=== PATIENT | female | born 1950 | race Caucasian/White ===

== ENCOUNTER 2016-12-22 09:06 | Observation (INO) | payer MEDICARE ==
[~2016-12-22] VITALS: Ht 165.1 cm; Wt 105.1 kg
[~2016-12-22 09:06] MED LIST: ATOR1TAB18 PO; LISI40TA PO; PRIL10CA PO; THYR1TAB21 PO; [UNRECOGNIZED DRUG - SUPPLY]
[2016-12-22 09:09] VITALS: BP 175/89; PULSE 78; RESP 16; TEMP 98.6; O2SAT 98
[2016-12-22] MEDS ORDERED: SODIUM CHLOR 0.9% 1000 ML INJ 1,000 ML IV SCH (09:23)
--- NOTE | 2016-12-22 09:25 | PD ---
HPI Chief Complaint: Abdominal Pain Time Seen by Provider: 09:17 Travel History International Travel<30 days: No Contact w/Intl Traveler<30days: No Traveled to known affect area: No History of Present Illness HPI This is a 66-year-old female who presents to the emergency department with epigastric and right upper quadrant abdominal pain that started last evening, constant, severe, described as a throbbing and bandlike pain radiating to the back. She did dry heave this morning. She had a normal bowel movement this morning. She has felt chills throughout the night. She has never had abdominal surgery before. She's never had pain like this before. She does drink 2-3 alcoholic beverages per day. PFSH Past Medical History Hx Anticoagulant Therapy: Yes (BABY ASA DAILY) Social History Alcohol Use: Yes (2-3 drinks a day) Tobacco Use: No Allergies-Medications (Allergen,Severity, Reaction): Coded Allergies: Penicillin (Unverified Allergy, Intermediate, Anaphylaxis, 12/22/16) Reported Meds & Prescriptions Reported Meds & Active Scripts Active Nature-Throid (Thyroid) 65 Mg Tab 65 Mg PO DAILY Lisinopril 40 Mg Tab 40 Mg PO DAILY Atorvastatin (Atorvastatin Calcium) 80 Mg Tab 80 Mg PO HS [CPAP Supplies] Reported Aspirin 81 Mg Tabdr 81 Mg PO DAILY Marly Allergy (Fexofenadine HCl) 180 Mg Tab 180 Mg PO DAILY Omeprazole 20 Mg Tab 20 Mg PO DAILY Review of Systems Except as stated in HPI: all other systems reviewed are Neg Physical Exam Narrative GENERAL: Uncomfortable appearing SKIN: Warm and dry. HEAD: Atraumatic. Normocephalic. EYES: Pupils equal and round. No injection or drainage. ENT: Moist mucous membranes NECK: Trachea midline. CARDIOVASCULAR: Regular rate and rhythm. No murmur appreciated. RESPIRATORY: Clear to auscultation. Breath sounds equal bilaterally. GASTROINTESTINAL: Abdomen soft, tender to palpation with guarding in the right upper quadrant and epigastrium MUSCULOSKELETAL: No obvious deformities. NEUROLOGICAL: Awake and alert. No obvious cranial nerve deficits. Moving all extremities. PSYCHIATRIC: Appropriate mood and affect; insight and judgment normal. Data Data Last Documented VS Vital Signs Date Time Temp Pulse Resp B/P Pulse Ox O2 Delivery O2 Flow Rate FiO2 12/22/16 10:34 18 12/22/16 10:05 74 200/84 100 Room Air 12/22/16 09:09 98.6 Orders Complete Blood Count With Diff (12/22/16 09:23) Comprehensive Metabolic Panel (12/22/16 09:23) Lipase (12/22/16 09:23) Prothrombin Time / Inr (Pt) (12/22/16 09:23) Act Partial Throm Time (Ptt) (12/22/16 09:23) Urinalysis - C+S If Indicated (12/22/16 09:23) Us Abdomen Gallbladder (12/22/16 ) Iv Access Insert/Monitor (12/22/16 09:23) Ecg Monitoring (12/22/16 09:23) Oximetry (12/22/16 09:23) Ondansetron Inj (Zofran Inj) (12/22/16 09:30) Sodium Chlor 0.9% 1000 Ml Inj (Ns 1000 M (12/22/16 09:23) Sodium Chloride 0.9% Flush (Ns Flush) (12/22/16 09:30) Morphine Inj (Morphine Inj) (12/22/16 09:30) Hydromorphone Pf Inj (Dilaudid Pf Inj) (12/22/16 10:15) Labs Laboratory Tests Test 12/22/16 09:35 White Blood Count 9.4 TH/MM3 Red Blood Count 4.69 MIL/MM3 Hemoglobin 14.7 GM/DL Hematocrit 45.7 % Mean Corpuscular Volume 97.6 FL Mean Corpuscular Hemoglobin 31.4 PG Mean Corpuscular Hemoglobin 32.2 % Concent Red Cell Distribution Width 15.2 % Platelet Count 256 TH/MM3 Mean Platelet Volume 8.5 FL Neutrophils (%) (Auto) 77.6 % Lymphocytes (%) (Auto) 14.4 % Monocytes (%) (Auto) 4.7 % Eosinophils (%) (Auto) 0.7 % Basophils (%) (Auto) 2.6 % Neutrophils # (Auto) 7.3 TH/MM3 Lymphocytes # (Auto) 1.4 TH/MM3 Monocytes # (Auto) 0.4 TH/MM3 Eosinophils # (Auto) 0.1 TH/MM3 Basophils # (Auto) 0.2 TH/MM3 CBC Comment DIFF FINAL Differential Comment Prothrombin Time 10.5 SEC Prothromb Time International 1.0 RATIO Ratio Activated Partial 22.6 SEC Thromboplast Time Sodium Level 139 MEQ/L Potassium Level 3.5 MEQ/L Chloride Level 99 MEQ/L Carbon Dioxide Level 27.8 MEQ/L Anion Gap 12 MEQ/L Blood Urea Nitrogen 7 MG/DL Creatinine 0.87 MG/DL Estimat Glomerular Filtration 65 ML/MIN Rate Random Glucose 127 MG/DL Calcium Level 9.3 MG/DL Total Bilirubin 0.7 MG/DL Aspartate Amino Transf 92 U/L (AST/SGOT) Alanine Aminotransferase 75 U/L (ALT/SGPT) Alkaline Phosphatase 89 U/L Total Protein 8.1 GM/DL Albumin 3.5 GM/DL Lipase 6836 U/L [facility] Medical Decision Making Medical Screen Exam Complete: Yes Emergency Medical Condition: Yes Interpretation(s) Afebrile, no tachycardia, hypertensive No leukocytosis Mild transaminitis Lipase is 6836 Differential Diagnosis Acute pancreatitis, cholelithiasis, cholecystitis Narrative Course This is a 66-year-old female who presents to the emergency department with abdominal pain and nausea. She was placed on a monitor and an IV was established. She was given multiple doses of IV pain medication, nausea medicine and IV fluids. Her lipase was found to be 6836 consistent with acute pancreatitis. A right upper quadrant ultrasound will be ordered and the patient will be admitted. I suspect this is related to her alcohol use. Diagnosis Primary Impression: Acute pancreatitis Qualified Code: K85.90 - Acute pancreatitis without infection or necrosis, unspecified pancreatitis type Admitting Information Admitting Physician Requests: Admit Anika Downey MD Dec 22, 2016 09:25
[2016-12-22] MEDS ORDERED: ONDANSETRON HCL 4 MG/2 ML VIAL IVP ONE (09:30)
[2016-12-22] MEDS ORDERED: SODIUM CHLORIDE 0.9% FLUSH 5 ML FLUSH IVF PRN (09:30)
[2016-12-22] MEDS ORDERED: MORPHINE SULFATE 8 MG/ML INJ IV PUSH ONE (09:30)
[2016-12-22] MEDS ORDERED: OMEP20TA PO (09:52)
[2016-12-22] MEDS ORDERED: FEXO15TA PO (09:52)
[2016-12-22] MEDS ORDERED: ASPI1TAB69 PO (09:53)
[2016-12-22 09:57] LABS: AUTOMATED NEUTROPHIL # 7.3 TH/MM3 (1.8-7.7); BASOPHIL # 0.2 TH/MM3 (0-0.2); BASOPHIL % 2.6 % (0.0-2.0); EOSINOPHIL # 0.1 TH/MM3 (0-0.4); EOSINOPHIL % 0.7 % (0.0-4.0); HEMATOCRIT 45.7 % (35.0-46.0); LYMPH % 14.4 % (9.0-44.0); LYMPHOCYTE # 1.4 TH/MM3 (1.0-4.8); MEAN CELL VOLUME 97.6 FL (80.0-100.0); MEAN CORPUSCULAR HEMOGLOBIN 31.4 PG (27.0-34.0); MEAN CORPUSCULAR HGB CONC 32.2 % (32.0-36.0); MONO % 4.7 % (0.0-8.0); NEUT % 77.6 % (16.0-70.0); PLATELET COUNT 256 TH/MM3 (150-450); RED BLOOD COUNT 4.69 MIL/MM3 (4.00-5.30); RED CELL DISTRIBUTION WIDTH 15.2 % (11.6-17.2); WHITE BLOOD COUNT 9.4 TH/MM3 (4.0-11.0)
[2016-12-22 09:59] LABS: HEMO FLAGS DIFF FINAL
[2016-12-22 10:00] LABS: CHLORIDE 99 MEQ/L (98-107); POTASSIUM 3.5 MEQ/L (3.5-5.1); SODIUM (NA) 139 MEQ/L (136-145)
[2016-12-22 10:04] LABS: APTT (PATIENT) 22.6 SEC (24.3-30.1); PROTHROMBIN TIME - PATIENT 10.5 SEC (9.8-11.6)
[2016-12-22 10:05] VITALS: BP 200/84; PULSE 74; RESP 18; RESP 20; O2SAT 100
[2016-12-22 10:05] LABS: ANION GAP 12 MEQ/L (5-15); BICARBONATE 27.8 MEQ/L (21.0-32.0)
[2016-12-22 10:06] LABS: BLOOD UREA NITROGEN 7 MG/DL (7-18)
[2016-12-22 10:08] LABS: ALT (GPT) 75 U/L (10-53); AST (GOT) 92 U/L (15-37); GLOMERULAR FILTRATION RATE 65 ML/MIN (>89)
[2016-12-22 10:10] LABS: TOTAL BILIRUBIN ADULT 0.7 MG/DL (0.2-1.0)
[2016-12-22 10:11] LABS: ALKALINE PHOSPHATASE 89 U/L (45-117)
[2016-12-22] MEDS ORDERED: HYDROmorphone HCL PF 1 MG/ML VIAL IV PUSH ONE (10:15)
[2016-12-22 11:00] VITALS: BP 220/110; PULSE 84; RESP 18; O2SAT 100
[2016-12-22] MEDS ORDERED: LISINOPRIL 20 MG TAB PO ONE (11:15)
--- NOTE | 2016-12-22 11:22 | RADHPO ---
EXAM DATE/TIME: 12/22/2016 10:21 [facility] COMPARISON: No previous studies available for comparison. INDICATIONS : Right upper quadrant pain. MEDICAL HISTORY : Gastroesophageal reflux disease. Hypercholesterolemia. Hypertension. Right upper quadrant pain. SURGICAL HISTORY : Mastectomy, left. ENCOUNTER: Initial ACUITY: 1 day PAIN SCORE: 9/10 LOCATION: Right upper quadrant MEASUREMENTS: LIVER: 23.0 cm length COMMON DUCT: 4 mm RIGHT KIDNEY: 11.8 x 6.1 x 5.9 cm FINDINGS: LIVER: Increased echotexture without focal lesion or ductal dilatation. COMMON DUCT: No intraluminal mass or stone visualized. GALLBLADDER: Contains no stones, demonstrates no wall thickening or pericholecystic fluid. PANCREAS: The visualized portions are within normal limits. Questionable adjacent free fluid RIGHT KIDNEY: No evidence of hydronephrosis, stone, or mass. CONCLUSION: Fatty liver otherwise unremarkable right upper quadrant ultrasound. Ángel Salcido MD on December 22, 2016 at 11:19 Board Certified Radiologist. This report was verified electronically.
[2016-12-22] MEDS ORDERED: SODIUM CHLORIDE 0.9% FLUSH 5 ML FLUSH FLUSH PRN (12:15)
[2016-12-22] MEDS: SODIUM CHLOR 0.9% 1000 ML INJ 1,000 ML IV SCH ×2 (12:27→22:18)
--- NOTE | 2016-12-22 14:09 | HHI.HP ---
cc: Catarino Rai MD [facility] Service [facility] Primary Care Physician Catarino R3 MD Fredi Admission Diagnosis acute pancreatitis Diagnoses: Chief Complaint: Abdominal pain Travel History International Travel<30 Days: No Contact w/Intl Traveler <30 Da: No Traveled to Known Affected Are: No History of Present Illness Patient is a 66-year-old female who drinks quite a bit alcohol wine and liquor daily. She came to the emergency room with increased abdominal pain in the right upper quadrant radiating into the back and associated nausea and vomiting. She had no trouble with her bowel movements and has not been constipated. There is no history of abdominal surgeries. Patient did come to the emergency room was found to have elevated lipase. Patient has never had any episodes of pancreatitis. She did have gallbladder ultrasound which was unremarkable. She was given IV narcotics which improved the discomfort in her lipase was found to be 6836. Patient is admitted to the hospital for further evaluation of acute pancreatitis. Review of Systems Constitutional: DENIES: Diaphoretic episodes, Fatigue, Fever, Weight gain, Weight loss, Chills, Dizziness, Change in appetite, Night Sweats Endocrine: DENIES: Abnorml menstrual pattern, Heat/cold intolerance, Polydipsia , Polyuria, Polyphagia Eyes: DENIES: Blurred vision, Diplopia, Eye inflammation, Eye pain, Vision loss , Photosensitivity, Double Vision Ears, nose, mouth, throat: DENIES: Tinnitus, Hearing loss, Vertigo, Nasal discharge, Oral lesions, Throat pain, Hoarseness, Ear Pain, Running Nose, Epistaxis, Sinus Pain, Toothache, Odynophagia Respiratory: DENIES: Apneas, Cough, Snoring, Wheezing, Hemoptysis, Sputum production, Shortness of breath Cardiovascular: DENIES: Chest pain, Palpitations, Syncope, Dyspnea on Exertion , PND, Lower Extremity Edema, Orthopnea, Claudication Gastrointestinal: COMPLAINS OF: Abdominal pain, Nausea, Vomiting, DENIES: Black stools, Bloody stools, Constipation, Diarrhea, Difficulty Swallowing, Anorexia Genitourinary: DENIES: Abnormal vaginal bleeding, Dysmenorrhea, Dyspareunia, Sexual dysfunction, Urinary frequency, Urinary incontinence, Urgency, Hematuria , Dysuria, Nocturia, Vaginal discharge Musculoskeletal: DENIES: Joint pain, Muscle aches, Stiffness, Joint Swelling, Back pain, Neck pain Integumentary: DENIES: Abnormal pigmentation, Pruritus, Rash, Nail changes, Breast masses, Breast skin changes, Nipple discharge Hematologic/lymphatic: DENIES: Bruising, Lymphadenopathy Immunologic/allergic: DENIES: Eczema, Urticaria Neurologic: DENIES: Abnormal gait, Headache, Localized weakness, Paresthesias, Seizures, Speech Problems, Tremor, Poor Balance Psychiatric: DENIES: Anxiety, Confusion, Mood changes, Depression, Hallucinations, Agitation, Suicidal Ideation, Homicidal Ideation, Delusions Past Family Social History Past Medical History Chronic urticaria, breast cancer, hypertension, thyroid disease, hyperlipidemia Past Surgical History Left breast resection right breast reduction Reported Medications Reviewed in the medical record, nothing new Allergies: Coded Allergies: Penicillin (Unverified Allergy, Intermediate, Anaphylaxis, 12/22/16) Active Ordered Medications Reviewed in the medical record Family History No family history of pancreatitis, father and mother in her 80s from natural causes. Patient Social History Lives alone, drinks wine and liquor daily No tobacco Physical Exam Vital Signs Vital Signs Date Time Temp Pulse Resp B/P Pulse Ox O2 Delivery O2 Flow Rate FiO2 12/22/16 11:00 84 18 220/110 100 Room Air 12/22/16 10:34 18 12/22/16 10:07 20 12/22/16 10:05 74 18 200/84 100 Room Air 12/22/16 10:05 20 100 Room Air 12/22/16 09:09 98.6 78 16 175/89 98 Physical Exam GENERAL: This is a well-nourished, well-developed patient, in no apparent distress. SKIN: No rashes, ecchymoses or lesions. Cool and dry. HEAD: Atraumatic. Normocephalic. No temporal or scalp tenderness. EYES: Pupils equal round and reactive. Extraocular motions intact. No scleral icterus. No injection or drainage. ENT: Nose without bleeding, purulent drainage or septal hematoma. Throat without erythema, tonsillar hypertrophy or exudate. Uvula midline. Airway patent. NECK: Trachea midline. No JVD or lymphadenopathy. Supple, nontender, no meningeal signs. CARDIOVASCULAR: Regular rate and rhythm without murmurs, gallops, or rubs. RESPIRATORY: Clear to auscultation. Breath sounds equal bilaterally. No wheezes , rales, or rhonchi. GASTROINTESTINAL: Active and tender abdomen, mildly distended MUSCULOSKELETAL: Extremities without clubbing, cyanosis, or edema. No joint tenderness, effusion, or edema noted. No calf tenderness. Negative Homans sign bilaterally. NEUROLOGICAL: Awake and alert. Cranial nerves II through XII intact. Motor and sensory grossly within normal limits. Five out of 5 muscle strength in all muscle groups. Normal speech. Laboratory Laboratory Tests Test 12/22/16 09:35 White Blood Count 9.4 Red Blood Count 4.69 Hemoglobin 14.7 Hematocrit 45.7 Mean Corpuscular Volume 97.6 Mean Corpuscular Hemoglobin 31.4 Mean Corpuscular Hemoglobin 32.2 Concent Red Cell Distribution Width 15.2 Platelet Count 256 Mean Platelet Volume 8.5 Neutrophils (%) (Auto) 77.6 Lymphocytes (%) (Auto) 14.4 Monocytes (%) (Auto) 4.7 Eosinophils (%) (Auto) 0.7 Basophils (%) (Auto) 2.6 Neutrophils # (Auto) 7.3 Lymphocytes # (Auto) 1.4 Monocytes # (Auto) 0.4 Eosinophils # (Auto) 0.1 Basophils # (Auto) 0.2 CBC Comment DIFF FINAL Differential Comment Prothrombin Time 10.5 Prothromb Time International 1.0 Ratio Activated Partial 22.6 Thromboplast Time Sodium Level 139 Potassium Level 3.5 Chloride Level 99 Carbon Dioxide Level 27.8 Anion Gap 12 Blood Urea Nitrogen 7 Creatinine 0.87 Estimat Glomerular Filtration 65 Rate Random Glucose 127 Calcium Level 9.3 Total Bilirubin 0.7 Aspartate Amino Transf 92 (AST/SGOT) Alanine Aminotransferase 75 (ALT/SGPT) Alkaline Phosphatase 89 Total Protein 8.1 Albumin 3.5 Lipase 6836 Result Diagram: 12/22/1693412/22/1635 Assessment and Plan Problem List: (1) Acute pancreatitis ICD Code: K85.90 Status: Acute Plan: Continue with IV hydration, CT abdomen pelvis pending Follow-up LFTs which are elevated (likely due to alcohol) Continue with IV narcotics for pain Clear liquids in a.m. if tolerated Code Status full code Discussed Condition With Patient, ER M.D. Problem Qualifiers (1) Acute pancreatitis: Qualified Code: K85.90 - Acute pancreatitis without infection or necrosis, unspecified pancreatitis type Li Penaloza MD Dec 22, 2016 14:09
[2016-12-22] MEDS: HYDROmorphone HCL PF 2 MG/ML VIAL IVS PRN ×2 (15:35→21:15)
[2016-12-22] MEDS ORDERED: DIATRIZOATE MEGLUM/DIATRIZOATE SOD 9 ML CUP PO ONE (15:45)
[2016-12-22 16:00] VITALS: BP 213/113; PULSE 84; RESP 18; TEMP 97.8; O2SAT 98
[2016-12-22] MEDS ORDERED: hydrALAZINE HCL 20 MG/ML VIAL IV PUSH PRN (17:30)
[2016-12-22] MEDS ORDERED: ENALAPRILAT 1.25 MG/ML VIAL IV PUSH PRN (17:30)
[2016-12-22] MEDS ORDERED: chlordiazePOXIDE 25 MG CAP PO PRN (17:30)
[2016-12-22] MEDS ORDERED: cloNIDine HCL 0.1 MG TAB PO PRN (17:30)
[2016-12-22] MEDS ORDERED: LORazepam 2 MG/ML VIAL IV PUSH PRN (17:30)
[2016-12-22] MEDS: THIAMINE HCL 100 MG TAB PO SCH (17:56)
[2016-12-22] MEDS: FOLIC ACID 1 MG TAB PO SCH (17:56)
[2016-12-22] MEDS ORDERED: ONDANSETRON HCL 4 MG/2 ML VIAL IV PUSH PRN (18:00)
[2016-12-22 18:01] LABS: BLOOD, URINE NEG (NEG); GLUCOSE,URINE NEG (NEG); KETONE, URINE NEG (NEG); NITRITE,URINE NEG (NEG); PH, URINE 5.5 (5.0-8.5)
[2016-12-22 18:05] LABS: METHOD OF COLLECTION VOIDED
[2016-12-22 18:06] LABS: COMMENT (UR) CULT NOT INDICATED; CULTURE IF INDICATED CULT NOT INDICATED; URINE COLOR YELLOW (YELLW/STRAW); WBC, URINE 0-2 /hpf (0-5)
[2016-12-22 18:07] LABS: HYALINE CAST, URINE 0-2 /lpf (RARE)
[2016-12-22] MEDS ORDERED: IOHEXOL 350 MG/ML 10 ML VIAL (for RAD DIAG) IV ONE (19:35)
[2016-12-22 20:00] VITALS: BP 177/89; PULSE 88; RESP 20; TEMP 99; O2SAT 95
--- NOTE | 2016-12-22 20:57 | RADHPO ---
EXAM DATE/TIME: 12/22/2016 19:35 [facility] COMPARISON: No previous studies available for comparison. INDICATIONS : Pancreatitis. Upper abdominal pain. IV CONTRAST: 100 cc Omnipaque 350 (iohexol) IV ORAL CONTRAST: Partial prescribed oral contrast ingested. RADIATION DOSE: 22.06 CTDIvol (mGy) MEDICAL HISTORY : Hypertension. Carcinoma, breast. Gastroesophageal reflux disease. SURGICAL HISTORY : Mastectomy, left. ENCOUNTER: Initial ACUITY: 2 days PAIN SCALE: 5/10 LOCATION: Bilateral upper quadrant TECHNIQUE: Volumetric scanning of the abdomen and pelvis was performed. Using automated exposure control and ad justment of the mA and/or kV according to patient size, radiation dose was kept as low as reasonably achievable to obtain optimal diagnostic quality images. FINDINGS: LOWER LUNGS: Mild air space disease is identified in the left base. LIVER: Liver is diffusely hypodense. There are no discrete lesions or evidence of ductal dilatation. Gallbla dder is in place. Portal vein is patent. SPLEEN: Normal size without lesion. PANCREAS: Extensive pancreatic and peripancreatic inflammation with stranding fluid into the anterior pararenal space and mesentery is noted. There are no mature extrapancreatic fluid collections. KIDNEYS: Normal in size and shape. There is no mass, stone or hydronephrosis. ADRENAL GLANDS: Within normal limits. VASCULAR: There is no aortic aneurysm. BOWEL/MESENTERY: The stomach, small bowel, and colon demonstrate no acute abnormality. There is no free intraperitone al air or fluid. ABDOMINAL WALL: Within normal limits. RETROPERITONEUM: There is no lymphadenopathy. BLADDER: No wall thickening or mass. REPRODUCTIVE: Within normal limits. Free fluid is identified in the pelvis. INGUINAL: There is no lymphadenopathy or hernia. MUSCULOSKELETAL: No acute findings. CONCLUSION: Acute pancreatitis. No evidence of biliary obstructive disease, abscess or pseudocyst formation. Severe hepatic steatosis. Free fluid in the pelvis. Pietro Haque MD on December 22, 2016 at 20:52 Board Certified Radiologist. This report was verified electronically.
[2016-12-22] MEDS: SODIUM CHLORIDE 0.9% FLUSH 5 ML FLUSH FLUSH SCH (21:00)
[2016-12-23] VITALS: BP 163/91; PULSE 89; RESP 20; TEMP 98; O2SAT 96
[2016-12-23 01:15] VITALS: BP 163/87; PULSE 96
[2016-12-23] MEDS: HYDROmorphone HCL PF 2 MG/ML VIAL IVS PRN ×2 (02:23→06:33)
[2016-12-23 04:00] VITALS: BP 157/90; PULSE 97; RESP 20; TEMP 96.6; O2SAT 93
[2016-12-23 07:09] LABS: INDIRECT BILIRUBIN 0.7 MG/DL (0.0-0.8)
[2016-12-23 08:00] VITALS: BP 149/86; PULSE 96; RESP 18; TEMP 98.5; O2SAT 94
[2016-12-23] MEDS ORDERED: LISINOPRIL 20 MG TAB PO SCH (09:00)
[2016-12-23] MEDS: SODIUM CHLORIDE 0.9% FLUSH 5 ML FLUSH FLUSH SCH (09:00)
[2016-12-23] MEDS ORDERED: PANTOPRAZOLE SOD 20 MG DELAYED RELEASE TAB PO SCH (09:00)
[2016-12-23] MEDS ORDERED: ASPIRIN EC 81 MG TABEC PO SCH (09:00)
[2016-12-23] MEDS ORDERED: THYROID 30 MG TAB PO SCH (09:00)
[2016-12-23] MEDS: FOLIC ACID 1 MG TAB PO SCH (09:10)
[2016-12-23] MEDS: THIAMINE HCL 100 MG TAB PO SCH (09:10)
[2016-12-23] MEDS: SODIUM CHLOR 0.9% 1000 ML INJ 1,000 ML IV SCH (09:18)
[2016-12-23 09:57] LABS: HDL CHOLESTEROL 44.1 MG/DL (40.0-60.0)
[2016-12-23] MEDS ORDERED: HYDR-2376 PO (10:57)
--- NOTE | 2016-12-23 10:58 | HHI.DCPOC ---
Discharge Care Plan Diagnosis: (1) Acute pancreatitis Goals to Promote Your Health * To prevent worsening of your condition and complications * To maintain your health at the optimal level Directions to Meet Your Goals Take your medications as prescribed Follow your dietary instruction Follow activity as directed Keep your appointments as scheduled Take your immunizations and boosters as scheduled If your symptoms worsen call your PCP, if no PCP go to Urgent Care Center or Emergency Room Smoking is Dangerous to Your Health. Avoid second hand smoke Call the 24-hour hour crisis hotline for domestic abuse at Li Penaloza MD Dec 23, 2016 10:58
--- NOTE | 2016-12-23 11:01 | HHI.DS ---
cc: Catarino Rai MD [facility] Discharge Summary Admission Date Dec 22, 2016 at 10:54 Discharge Date: Dec 23, 2016 Admitting Diagnosis acute pancreatitis (1) Acute pancreatitis ICD Code: K85.90 Procedures none Brief History - From Admission Patient is a 66-year-old female who drinks quite a bit alcohol wine and liquor daily. She came to the emergency room with increased abdominal pain in the right upper quadrant radiating into the back and associated nausea and vomiting. She had no trouble with her bowel movements and has not been constipated. There is no history of abdominal surgeries. Patient did come to the emergency room was found to have elevated lipase. Patient has never had any episodes of pancreatitis. She did have gallbladder ultrasound which was unremarkable. She was given IV narcotics which improved the discomfort in her lipase was found to be 6836. Patient is admitted to the hospital for further evaluation of acute pancreatitis. CBC/BMP: 12/22/16 0935 12/22/16 0935 Significant Findings Laboratory Tests Test 12/22/16 12/22/16 12/23/16 09:35 17:55 05:58 Neutrophils (%) (Auto) 77.6 % (16.0-70.0) Basophils (%) (Auto) 2.6 % (0.0-2.0) Activated Partial 22.6 SEC Thromboplast Time (24.3-30.1) Estimat Glomerular Filtration 65 ML/MIN (>89) Rate Random Glucose 127 MG/DL (74-106) Aspartate Amino Transf 92 U/L (15-37) 47 U/L (15-37) (AST/SGOT) Alanine Aminotransferase 75 U/L (10-53) (ALT/SGPT) Lipase 6836 U/L 7869 U/L (73-393) (73-393) Urine Turbidity CLOUDY (CLEAR) Urine Protein 30 mg/dL (NEG-TRACE) Direct Bilirubin 0.3 MG/DL (0.0-0.2) Albumin 2.9 GM/DL (3.4-5.0) Imaging Last Impressions Gall Bladder Ultrasound 12/22/16 0000 Signed Impressions: Service Date/Time: Thursday, December 22, 2016 10:21 - CONCLUSION: Fatty liver otherwise unremarkable right upper quadrant ultrasound. Ángel Salcido MD Abdomen/Pelvis CT 12/22/16 0000 Signed Impressions: Service Date/Time: Thursday, December 22, 2016 19:35 - CONCLUSION: Acute pancreatitis. No evidence of biliary obstructive disease, abscess or pseudocyst formation. Severe hepatic steatosis. Free fluid in the pelvis. Pietro Haque MD PE at Discharge GENERAL: This is a well-nourished, well-developed patient, in no apparent distress. CARDIOVASCULAR: Regular rate and rhythm without murmurs, gallops, or rubs. RESPIRATORY: Clear to auscultation. Breath sounds equal bilaterally. No wheezes , rales, or rhonchi. GASTROINTESTINAL: Abdomen soft, non-tender, nondistended. Normal active bowel sounds MUSCULOSKELETAL: Extremities without clubbing, cyanosis, or edema. NEURO: Alert & Oriented x4 to person, place, time, situation. Moves all ext x4 Pt update on day of discharge Seen and evaluated today in follow-up for acute pancreatitis. Abdominal pain resolved. Patient tolerating liquids like to advance diet. Discharge plans discussed with patient and with family at bedside. Hospital Course This patient is a 66-year-old female with significant alcohol consumption came in with the first episode of pancreatitis. Patient responded well to short time of bowel rest. Her diet was increased and she tolerated this and patient' s pain regimen was appropriate. Education was provided at bedside regarding alcohol consumption pancreatitis. Patient was discharged home Pt Condition on Discharge: Good Discharge Disposition: Discharge Home Discharge Time: > 30 minutes Discharge Instructions DIET: Follow Instructions for: As Tolerated, No Restrictions, Low Fat Diet Activities you can perform: Regular-No Restrictions Follow up Referrals: PCP Follow-up with [facility] New Medications: Hydrocodone-Acetaminophen (Hydrocodone-Acetaminophen) 7.5-300 Mg Tab 1 TAB PO Q6H PRN PAIN #20 Ref 0 TAB Continued Medications: Aspirin (Aspirin) 81 Mg Tabdr 81 MG PO DAILY TAB Atorvastatin (Atorvastatin) 80 Mg Tab 80 MG PO HS Cholesterol Management #90 Ref 3 TAB Fexofenadine (Marly Allergy) 180 Mg Tab 180 MG PO DAILY Allergy Management #30 Ref 0 TAB Lisinopril (Lisinopril) 40 Mg Tab 40 MG PO DAILY Blood Pressure Management #90 Ref 3 TAB Omeprazole (Omeprazole) 20 Mg Tab 20 MG PO DAILY #30 Ref 0 TAB Thyroid (Nature-Throid) 65 Mg Tab 65 MG PO DAILY Thyroid Supplement #90 Ref 3 TAB Li Penaloza MD Dec 23, 2016 11:01
[2016-12-23 12:00] VITALS: BP 156/76; PULSE 95; RESP 20; TEMP 97.2; O2SAT 93
[2016-12-23] MEDS ORDERED: ATORVASTATIN 40 MG TAB PO SCH (21:00)
== END 2016-12-23 13:15 | disposition home or self-care (01) ==
LOC: PHED 09:06 → INTOOBSV 10:54 → PHEDA 10:54 → PH3B 11:41
PROVIDERS: ADMIT Hospitalist; ATTEND Hospitalist
DX: K85.90 Acute pancreatitis without necrosis or infection, unspecified (principal); R68.83 Chills (without fever); Z79.82 Long term (current) use of aspirin; Z79.899 Other long term (current) drug therapy; R74.8 Abnormal levels of other serum enzymes; K76.0 Fatty (change of) liver, not elsewhere classified; F10.20 Alcohol dependence, uncomplicated; K21.9 Gastro-esophageal reflux disease without esophagitis; E78.00 Pure hypercholesterolemia, unspecified; I10 Essential (primary) hypertension
CPT/HCPCS: 74177; 76705; 80053; 80061; 80076; 81001; 83690; 85025; 85610; 85730; 96361; 96374; 96375; 99285; G0378; J1170; J2270; J2405; J7030; Q9963; Q9967

== ENCOUNTER → 2018-04-18 | Outpatient (CLI) | payer MEDICARE ==
[~2018-04-18] MED LIST changes: +ASPI1TAB69 PO; -ATOR1TAB18 PO; +ATOR80TA45 PO; +FEXO15TA PO; +HYDR-2376 PO; +NATU65TA PO; +OMEP20TA93 PO; -PRIL10CA PO; -THYR1TAB21 PO
--- NOTE | 2018-04-21 09:19 | RSPPFT ---
DATE OF PROCEDURE: 04/18/18 COMMENTS: Spirometry shows FVC of 3.3 at 110% of predicted, FEV1` of 2.1 at 91%, FEV1/FVC ratio is decreased. Flow is decreased at FEF 50, FEF 75 and FEF 25-75. There is no response after acutely inhaled bronchodilator treatment. Lung volumes show residual volume is normal. TLC is normal. Diffusion capacity is normal. Flow volume loop indicates terminal airways obstruction. IMPRESSION: 1. Mild small airways obstructive lung disease. 2. No response after bronchodilator treatment. 3. Normal lung volumes. 4. Normal diffusion capacity.
== END ==
LOC: PHRSP 09:35
PROVIDERS: ATTEND Specialist
DX: J44.9 Chronic obstructive pulmonary disease, unspecified (principal)
CPT/HCPCS: 94060; 94726; 94729